=== PATIENT | female | born 1960 | race African-American/Black ===

== ENCOUNTER 2018-12-10 01:56 | Inpatient (IN) | payer MEDICARE, MEDICAID ==
[~2018-12-10] VITALS: Ht 167.6 cm; Wt 83.0 kg
[2018-12-10] VITALS (10 sets, daily range): BP systolic 96–138; BP diastolic 58–84
[~2018-12-10 01:56] MED LIST: ASPI-1471 PO; BISA-236 RC; BUPR-124 PO; CELE-1 PO; DIA5 PO; DOCU100C49 PO; DOCU100T19 PO; DOCU240C84 PO; ESOM40CA42 PO; ETAN50DI5 SQ; GABA-547 PO; GABA-549 PO; HYDR-2966 PO; HYDR-385 PO; LEFL20TA6 PO; LEVO-3 PO; LISI-351 PO; LOSA25TA57 PO; OXYC-865 PO; PARO-243 PO; PRE1 PO; PRE5 PO; RIV10 PO; TIZA2CAP3 PO; [UNRECOGNIZED DRUG - OTHER]
[2018-12-10] MEDS ORDERED: ACETAMINOPHEN 500 MG TAB PO ONE (08:30)
[2018-12-10] MEDS ORDERED: NS(*) 0.9% 100 ML BAG 100 ML ONE (10:38)
[2018-12-10] MEDS ORDERED: PROPOFOL EMUL(*) 10MG/ML 20 ML 60 ML ONE (10:41)
[2018-12-10] MEDS ORDERED: KETAMINE HCL 500 MG/10 ML VIAL ONE (10:44)
[2018-12-10] MEDS ORDERED: fentaNYL CITR 100 MCG/2 ML AMP ONE ×2 (10:44→16:23)
[2018-12-10] MEDS ORDERED: DEXAMETHASONE SOD PHOS 10MG/ML ONE (10:45)
[2018-12-10] MEDS ORDERED: ONDANSETRON 4 MG/2 ML VIAL ONE (10:45)
[2018-12-10] MEDS ORDERED: LIDOCAINE MPF 1% 5 ML VIAL ONE (10:45)
[2018-12-10] MEDS ORDERED: PROPOFOL EMUL(*) 10MG/ML 20 ML 20 ML ONE (10:45)
[2018-12-10] MEDS ORDERED: ROCURONIUM BROM 10 MG/ML 10 ML ONE (10:48)
[2018-12-10] MEDS ORDERED: LIDOCAINE 2% JELLY 5 ML TUBE ONE (10:48)
[2018-12-10] MEDS ORDERED: MIDAZOLAM 2 MG/2 ML VIAL IVP PRN (11:10)
[2018-12-10] MEDS ORDERED: LIDOCAINE/SOD BICARB 8.4% SYR ID ONE (11:10)
[2018-12-10] MEDS ORDERED: ceFAZolin(*) 2GM/D5W 50ML 50 ML IVPB ONE (11:10)
[2018-12-10] MEDS ORDERED: BACITRACIN 50000 UNIT/VIAL 50,000 UNIT in NS 0.9% IRRIG(*) 1000ML PLCT 1,000 ML IR PRN (11:10)
[2018-12-10] MEDS ORDERED: NORMOSOL R SOLN(*) 1000 ML BAG 1,000 ML IV PRN (11:10)
[2018-12-10] MEDS ORDERED: SUGAMMADEX SOD 500 MG/5 ML SDV ONE (11:13)
[2018-12-10] MEDS ORDERED: APREPITANT 40 MG CAP PO ONE (12:18)
[2018-12-10] MEDS ORDERED: ePHEDrine 25 MG/5 ML DISP.SYR IVP ONE (13:01)
[2018-12-10] MEDS ORDERED: REMIFENTANIL HCL 1 MG VIAL ONE ×2 (13:16→14:26)
[2018-12-10] MEDS ORDERED: MIDAZOLAM 2 MG/2 ML VIAL ONE (13:16)
[2018-12-10] MEDS ORDERED: THROMBIN TOP SOLN 5000INTLU VL ONE (13:54)
[2018-12-10] MEDS ORDERED: THROMBIN (BOVINE) 20,000 UNIT VIAL ONE (13:55)
[2018-12-10] MEDS ORDERED: HYDROmorphone HCL 2 MG/ML SDV ONE (16:54)
[2018-12-10] MEDS ORDERED: diphenhydrAMINE 25 MG CAP PO PRN (16:55)
[2018-12-10] MEDS ORDERED: ACETAMINOPHEN 500 MG TAB PO PRN (16:55)
[2018-12-10] MEDS ORDERED: BENZOCAINE/MENTHOL 1 EACH LOZG PO PRN (16:55)
[2018-12-10] MEDS ORDERED: MAGNESIUM HYDROXIDE* 30ML UDCP PO PRN (16:55)
[2018-12-10] MEDS ORDERED: ACETAMINOPHEN(*)1000 MG/100 ML 100 ML IVPB PRN (16:55)
[2018-12-10] MEDS ORDERED: oxyCODONE HCL 5 MG CAP PO PRN (16:55)
[2018-12-10] MEDS ORDERED: ONDANSETRON 4 MG/2 ML VIAL IVP PRN (16:55)
[2018-12-10] MEDS ORDERED: DIAZEPAM 5 MG TAB PO PRN (16:55)
[2018-12-10] MEDS ORDERED: FLUSH 10 ML SYR IVP PRN (16:55)
[2018-12-10] MEDS ORDERED: LR(*) 1000 ML BAG 1,000 ML IV PRN (16:55)
[2018-12-10] MEDS ORDERED: HYDROmorphone HCL 2 MG/ML SDV IVP PRN (16:55)
[2018-12-10] MEDS ORDERED: BISACODYL 10 MG SUPP PR PRN (16:55)
--- NOTE | 2018-12-10 17:50 | RADIOLOGY IMAGING REPORT ---
FACILITY: [facility] PATIENT NAME: Annel Mariee : 1960 MR: [id number] V: [id number] EXAM DATE: ORDERING PHYSICIAN: TIMOTEO HERRMANN TECHNOLOGIST: Location: [facility] [place] Patient: Annel Mariee : 1960 Visit/Account:[id number] Date of Sevice: 12/10/2018 C-ARM FLUORO 1 HR Indication: Back pain. Fusion. Procedure: Fluoroscopic guidance was provided for orthopedic surgery. Fluoroscopy time: AK: 15.4 mGy Number of images: 9 images of the lumbar spine were obtained. Findings: Fluoroscopic guidance was provided for anterior and posterior fusion at L4-5. IMPRESSION: Intraoperative lumbar spine images for fusion. Report Dictated By: Rober Quintanilla MD at 12/10/2018 5:44 PM Report E-Signed By: Rober Quintanilla MD at 12/10/2018 5:46 PM WSN:[id number]
--- NOTE | 2018-12-10 18:38 | OPERATIVE REPORT 1 ---
EVENT DATE: December 10, 2018 SURGEON: Julio Cesar Batista MD ANESTHESIOLOGIST: Devon Hazel MD ANESTHESIA: General endotracheal anesthesia. HEATING WORKER: Henry Aden PA-C PREOPERATIVE DIAGNOSIS L4-L5 foraminal stenosis with L4-L5 spondylolisthesis and right greater than left L4 radiculopathy. POSTOPERATIVE DIAGNOSIS L4-L5 foraminal stenosis with L4-L5 spondylolisthesis and right greater than left L4 radiculopathy. PROCEDURE PERFORMED Removal of deep implants L3-L4. Transforaminal interbody fusion L4-L5. Pedicle screw fixation L4-L5. INTRAVENOUS FLUIDS 2300 mL. ESTIMATED BLOOD LOSS 120 mL. IMPLANTS USED A 12 mm, zero-degree x 26 mm long titanium interbody device from [employer] placed at L4-L5. Pedicle screws 6.5 mm x 45 mm from [employer] times two. Pedicle screws 6.5 mm x 40 mm from [employer] times two. Connecting rods 50 mm from [employer] times two. Locking caps from [employer] times four. SPECIMENS None. DRAINS None. COMPLICATIONS None. DISPOSITION Post-anesthesia care unit. INDICATIONS FOR SURGERY Ms. Mariee is a 58-year-old female well known to me who underwent a laminectomy well over a year ago. She did quite well after her surgery, which was an L4-L5 laminectomy, but then a couple of months ago began experiencing pain radiating from the posterolateral hip, lateral thigh, lateral calf, and the dorsum of the right foot, as well as some radiating pain down the anterior thighs. She was sent for a new MRI, which showed us severe bilateral foraminal narrowing at that L4-L5 level in addition to significant progression of the anterolisthesis that was previously present. Her disk had almost completely collapsed as well. The anterolisthesis was nearly a grade 2. Her physical examination was significant for full strength in all myotomes, but light touch sensation was diminished in the dorsum of the right foot. Again, the imaging studies showed thickened ligament and lateral recess stenosis as well as severe foraminal stenosis bilaterally at L4-L5. A right-sided epidural steroid injection gave her good relief of her symptoms, but only temporarily, so ultimately she was offered a revision surgery in the form of removal of her previously placed hardware at L3 and L4 and new pedicle screw placement at L4 and L5 with transforaminal lumbar interbody fusion performed at that level as well. Prior to surgery, I explained in detail to the patient the possible risks of surgery. These risks include bleeding, infection, damage to surrounding structures, nerve root injury, spinal fluid leak, meningitis, persistent and/or worsening pain, need for further surgery, , blindness, sexual dysfunction, autonomic nervous system dysfunction, and other unforeseen medical and surgical complications. An understanding that in general spinal surgery is more predictive at improving extremity discomfort than axial spine pain was stressed. Further discussion regarding the increased risks due to the revision nature of the procedure was also had, those increased risks including increased risk of infection, bleeding, dural tear, etc. DESCRIPTION OF PROCEDURE On the day of surgery, the patient was met in the preoperative hold area, and all questions were answered. The operative site was identified and marked by myself. The patient was brought in good condition to the operating room, and after succumbing to anesthesia, was positioned in the prone position on a Kobe table. All bony protuberances and soft tissues were well padded in the standard fashion. Preoperative antibiotics were administered according to the appropriate timing schedule. Care was taken to maintain appropriate perfusion pressures during anesthesia. At the conclusion of the procedure, sponge and needle counts were correct times two. A final timeout was undertaken by members of the operating team to confirm correct patient, correct levels, and correct surgery. The patient was prepped and draped in the standard sterile orthopedic fashion, and a vertical incision was made inclusive of her previous surgical scar and going further inferior so that we could address that L4-L5 level completely. Sharp dissection was carried out down to the posterior elements, and I was then able to come down in the midline until I was able to locate the crosslink that had been placed at the previous fusion. From there, I dissected along the crosslink out laterally on both sides until we came to the connecting rods for the pedicle screws. The pedicle screws were then exposed bilaterally, and then I went further caudad on both sides to identify the L4-L5 facets and the transverse processes of L5. Appropriate instrumentation was used to remove the caps, the crosslink, the rods, and the screws at L3 and L4 bilaterally. I then went ahead and prepared the pedicles for the L5 pedicle screws by identifying the appropriate pedicle screw start point at approximately the junction of the pars interarticularis, the mid point of the transverse process, and the lateral border of the facet joint. I did this on both sides and used a high-speed crystal to decorticate the overlying bone. A Lenke style probe was advanced against resistance through the pedicle and into the vertebral body. A ball tip feeler was then used to ensure absence of bony breaching by palpating superiorly, inferiorly, medially, laterally, and distally to ensure solid bone all around. I selected 40 mm screws for the L5 level and placed both of those and then tested those with neurophysiologic monitoring, and they tested greater than 20 mA. We then replaced new screws in the existing pedicle holes at L4, and these also tested greater than 20 mA with neurophysiologic monitoring. A distraction device was inserted into the tulips of the screws on the right side of the patient. We distracted here, and it was noted at this point that the patient appeared to have a significant and complete pars defect on that side that gapped with distraction. I went ahead and used osteotomes to knock off the inferior articular process of L4 and then superior articular processes of L5, and this exposed the transforaminal interval and allowed me to identify the disk space. The annulotomy was performed in the disk space, and under fluoroscopic guidance, I went ahead and used progressively larger carlos alberto as well as curettes and pituitary rongeurs to perform a diskectomy of L4-L5 disk. Once this was complete, we selected a size 12 trial and placed that into the interbody space. AP and lateral radiographs were obtained that showed that that was the appropriate sized implant and that we had near complete reduction of the anterolisthesis with placement of the interbody device alone. I then packed the interbody space with demineralized bone matrix and milled local bone, and we then packed the interbody device with the same. The interbody device was tapped into place under fluoroscopic guidance, and once it was in perfect position, the tariff supervisor was removed. Distraction was taken off those pedicle screws, and we then selected 50 mm connecting rods for both sides. These were placed within the tulips, and locking caps were placed and tightened. On both sides, we used the torque wrench to tighten the L4 screws and then used the compression device to compress across the disk space and finally tighten the locking caps of L5. This was performed bilaterally. Final radiographs showed excellent positioning of the pedicle screws as well as the interbody device. The wound was then irrigated with copious antibiotic-impregnated fluid and closed in layers using interrupted sutures for the deep fascia, inverted interrupted sutures for the subcutaneous tissue, and then a running subcuticular skin stitch. Sponge and needle counts were correct times two. POSTOPERATIVE CARE PLAN Patient will remain in the hospital until she meets discharge criteria. She will be discharged home with instructions to follow up with me in two weeks' time. BLESSING
--- NOTE | 2018-12-10 18:52 | EKG ---
FACILITY: [facility] - [place] PATIENT NAME: MANJIT PAZ : [id number] MR: [id number] V: [id number] EXAM DATE: ORDERING PHYSICIAN: OBI MIRANDA TECHNOLOGIST: BRITTANI Test Reason : WEAK PULSE Blood Pressure : / mmHG Vent. Rate : 059 BPM Atrial Rate : 059 BPM P-R Int : 140 ms QRS Dur : 080 ms QT Int : 468 ms P-R-T Axes : 067 071 044 degrees QTc Int : 463 ms Sinus bradycardia Cannot rule out Anterior infarct , age undetermined Abnormal ECG Confirmed by OBI MIRANDA ([id number]) on 12/10/2018 7:25:59 PM Referred By: Confirmed By:OBI MIRANDA
[2018-12-10] MEDS ORDERED: NS(*) 0.9% 1000 ML BAG 0 ML ONE (18:56)
--- NOTE | 2018-12-10 19:33 | Hospitalist Consultation ---
History of Present Illness Requesting Physician Dr. Batista Reason for Consult Hypertension History of Present Illness This patient was admitted for lumbar surgery. Her surgery went well, but she suffered a near syncopal episode after arriving to the floor. History Problems: (1) Essential hypertension (2) Hypothyroid (3) Rheumatoid arthritis Home Meds Reported Medications Etanercept (ENBREL) 50 Mg/1 Ml Disp.syrin, 50 MG SQ QOWEEK 12/04/18 Gabapentin (GABAPENTIN) 300 Mg Capsule, 600 MG PO HS, CAPSULE 12/04/18 Leflunomide (LEFLUNOMIDE) 20 Mg Tablet, 20 MG PO DAILY 12/04/18 Hydrochlorothiazide (HYDROCHLOROTHIAZIDE) 25 Mg Tablet, 0.5 TAB PO QDAY, TAB 12/04/18 Hydrocodone Bit/Acetaminophen (HYDROCODON-ACETAMINOPHEN 5-325) 1 Each Tablet, 1- 2 EACH PO Q6H PRN for PAIN, #49 TAB 05/30/17 Docusate Calcium (SURFAK) 240 Mg Capsule, 240 MG PO QODAY, #9 CAPSULE 05/30/17 Levothyroxine Sodium (LEVOTHYROXINE SODIUM) 100 Mcg Tablet, 100 MCG PO QDAY, TAB 05/27/17 Gabapentin (GABAPENTIN) 300 Mg Capsule, 300 MG PO QAM, CAPSULE 05/27/17 Tizanidine Hcl (TIZANIDINE HCL) 2 Mg Capsule, 4 MG PO PRN, CAPSULE 05/27/17 Losartan Potassium (LOSARTAN POTASSIUM) 25 Mg Tablet, 100 MG PO QDAY 05/27/17 Aspirin (ASPIR 81) 81 Mg Tablet.dr, 81 MG PO QHS, TAB stopped 09/15/13 09/16/13 Prednisone (PREDNISONE) 1 Mg Tab, 4 MG PO BID, TAB 09/16/13 Esomeprazole Magnesium (NEXIUM) 40 Mg Capsule.dr, 1 CAP PO QDAY TAKE ONE CAPSULE BY MOUTH EVERY DAY 09/16/13 Celecoxib (CELEBREX) 200 Mg Capsule, 200 MG PO BID, CAPSULE stopped 09/13/13 09/16/13 Discontinued Reported Medications Diazepam (VALIUM) 5 Mg Tablet, 5 MG PO Q8H PRN for SPASMS, #25 TAB 05/30/17 Bupropion Hcl (BUPROPION XL) 150 Mg Tab.er.24h, 150 MG PO QDAY, #10 TAB 05/27/17 Docusate Sodium (STOOL SOFTENER) 100 Mg Capsule, 100 MG PO QHS PRN for BLOATING, CAPSULE 09/16/13 Prednisone 5 Mg Tab (PREDNISONE 5 MG TAB) 5 Mg Tablet, 5 MG PO QAM 09/16/13 Allergies: Coded Allergies: No Known Drug Allergies (Unverified , 09/16/13) Patient History: FH: diabetes mellitus FATHER, , Age:70 MOTHER, , Age:60 years and older Hx Smoking: Yes (> 0.5 PPD X 25 YRS ) Smoking Status: Current: Every Day Smoker Caffeine Intake: Coffee, Tea, Soda Caffeine/Cups Per Day: 1 CCD Hx Alcohol Use: Yes Hx Substance Use Disorder: No Social Drug Use: Never History of IV Drug Use: No Review of Systems All Systems Reviewed/Normal: Yes Exam Vital Signs Vital Signs Date Time Temp Pulse Resp B/P (MAP) Pulse Ox O2 Delivery O2 Flow Rate FiO2 12/10/18 19:18 97.4 59 16 103/61 (75) 96 Nasal Cannula 2.0 Neuro: No Gross deficits Cardiovascular: Regular Rate and Rhythm Respiratory: Clear to Auscultation GI: Abd Soft and Non-Tender Extremities: No Edema Integumentary: No Cyanosis Assessment and Plan Problems: (1) Near syncope Assessment & Plan: She did suffer a near syncopal episode postoperatively and her blood pressures are running borderline low. She is receiving an IV bolus and we have started her on stress dose hydrocortisone. An EKG showed only sinus bradycardia. (2) Rheumatoid arthritis Assessment & Plan: She is on chronic treatment with Enbrel, leflunomide, and prednisone. We have started her on hydrocortisone as above. The other medications are on hold. (3) Essential hypertension Assessment & Plan: She is on chronic treatment with losartan and hydrochlorothiazide, which are both on hold. (4) Hypothyroid Assessment & Plan: She is on chronic treatment with Synthroid. Copies to: TIMOTEO BATISTA MD ; Venous Thromboembolism Antithrombotics Is Pt On Any Antithrombotics?: No Exam Sepsis Risk: No Definite Risk OBI MIRANDA DO December 10, 2018 19:33
[2018-12-10] MEDS ORDERED: NS(*) 0.9% 500 ML BAG 500 ML IV ONE (19:45)
[2018-12-10] MEDS: APAP/HYDROCODONE 325/5 TAB PO PRN (20:42)
[2018-12-10] MEDS: DOCUSATE SODIUM 100 MG CAP PO SCH (20:42)
[2018-12-10] MEDS: ceFAZolin(*) 2GM/D5W 50ML 50 ML IVPB SCH (20:43)
[2018-12-10] MEDS: HYDROCORTISONE 100 MG/2 ML IVP SCH (20:43)
[2018-12-10] MEDS ORDERED: GABAPENTIN 300 MG CAP PO SCH (21:00)
[2018-12-11] VITALS: BP 119/78
[2018-12-11] MEDS: APAP/HYDROCODONE 325/5 TAB PO PRN ×3 (00:52→09:27)
[2018-12-11 04:05] VITALS: BP 127/84
[2018-12-11] MEDS: HYDROCORTISONE 100 MG/2 ML IVP SCH ×2 (04:08→12:23)
[2018-12-11] MEDS: ceFAZolin(*) 2GM/D5W 50ML 50 ML IVPB SCH ×2 (04:08→12:24)
[2018-12-11] MEDS ORDERED: LEVOTHYROXINE SOD 0.1 MG TAB PO SCH (06:00)
[2018-12-11 07:20] VITALS: BP 120/76
[2018-12-11] MEDS ORDERED: DOCU240C84 PO (07:55)
[2018-12-11] MEDS ORDERED: DIA5 PO (07:57)
[2018-12-11] MEDS ORDERED: LOR5/325 PO (07:58)
--- NOTE | 2018-12-11 08:59 | NUR ---
Physical Therapy Impression Pt eval complete. Pt aware of fusion precautions, PT reinforced. Bed mobility with log completed with SBA. SBA for transfers and ambulation x150' with RW. Pt instruction to asc/desc stair with walker as well as with railing, pt completed with SBA and good safety. Pt with good awareness of precautions when completing pericare. Pt is safe to d/c home and has met PT goals, she will have assist from family, rec use of RW. Physical Therapy Goals 1: Bed mobility with SBA and log roll 2: transfers with SBA and RW 3: Ambulation x150' with RW and SBA 4: Up/down 2 stairs with SBA Patient's Goals
[2018-12-11] MEDS ORDERED: GABAPENTIN 300 MG CAP PO SCH (09:00)
[2018-12-11] MEDS: DOCUSATE SODIUM 100 MG CAP PO SCH (09:28)
--- NOTE | 2018-12-11 12:14 | Hospitalist Progress Note ---
Subjective Progress Notes Subjective She was admitted s/p lumbar surgery. She had no further acute episodes overnight. She feels well this morning. Has no complaints. Patient Complains of: Cardiovascular: No: Chest Pain Respiratory: No: Shortness of Breath Physical Exam Vital Signs Date Time Temp Pulse Resp B/P (MAP) Pulse Ox O2 Delivery O2 Flow Rate FiO2 12/11/18 08:34 66 12/11/18 08:20 89 Room Air 12/11/18 07:20 97.9 120/76 (91) 12/11/18 04:05 16 12/11/18 00:00 2.0 Intake and Output 12/11/18 07:00 Intake Total 2836 ml Output Total 200 ml Balance 2636 ml Intake Oral 700 ml IV Total 2136 ml Output Urine Total 100 ml Estimated Blood Loss 100 ml # Voids 5 # Bowel Movements 3 General Appearance: Alert, Awake, No Acute Distress, Afebrile Neuro: No Gross deficits Cardiovascular: Regular Rate and Rhythm Respiratory: No Respiratory Distress, Clear to Auscultation GI: Soft and Non-Tender Psych: Alert & Oriented X3, Appropriate Mood & Affect Assessment and Plan Problems: (1) Near syncope Assessment & Plan: She did suffer a near syncopal episode postoperatively and her blood pressures were running borderline low. She received an IV bolus and stress dose hydrocortisone. An EKG showed only sinus bradycardia. Blood pressures normal this morning. (2) Rheumatoid arthritis Assessment & Plan: She is on chronic treatment with Enbrel, leflunomide, and prednisone. We have started her on hydrocortisone as above. The other medications are on hold. (3) Essential hypertension Assessment & Plan: She is on chronic treatment with losartan and hydrochlorothiazide, which are both on hold for three days prior to resuming. (4) Hypothyroid Assessment & Plan: She is on chronic treatment with Synthroid. Exam Sepsis Risk: No Definite Risk KATIE SANDRA UTILITY AIRCREWMAN December 11, 2018 12:14
[2018-12-11 12:18] VITALS: BMI 29.5
[2018-12-11 12:30] VITALS: BP 118/65
[2018-12-12 15:19] VITALS: Ht 167.6 cm; Wt 83.0 kg
== END 2018-12-11 14:05 | disposition home or self-care (01) | DRG 460 ==
LOC: OR 01:56 → MED 17:45
PROVIDERS: ADMIT Orthopaedic Surgery; ATTEND Orthopaedic Surgery
PROC: 0SG00AJ Fusion of Lumbar Vertebral Joint with Interbody Fusion Device, Posterior Approach, Anterior Column, Open Approach (ICD-10-PCS; principal; 2018-12-10 12:31)
PROC: 0ST20ZZ Resection of Lumbar Vertebral Disc, Open Approach (ICD-10-PCS; 2018-12-10 12:31)
DX: M48.061 Spinal stenosis, lumbar region without neurogenic claudication (principal); M43.16 Spondylolisthesis, lumbar region; M54.16 Radiculopathy, lumbar region; I10 Essential (primary) hypertension; K21.9 Gastro-esophageal reflux disease without esophagitis; E03.9 Hypothyroidism, unspecified; M06.9 Rheumatoid arthritis, unspecified; I95.81 Postprocedural hypotension; R55 Syncope and collapse; Z87.891 Personal history of nicotine dependence
CPT/HCPCS: 36416; 76000; 82948; 86850; 86900; 86901; 93005; 95940; 97161; C1713; J0690; J1100; J1170; J1720; J2001; J2250; J2405; J2704; J3010; J7040; J7050; J8501

== ENCOUNTER 2019-01-25 12:20 | Inpatient (IN) | payer MEDICARE, MEDICAID ==
[~2019-01-25] VITALS: Ht 167.6 cm; Wt 72.6 kg
[~2019-01-25 12:20] MED LIST changes: +LOR5/325 PO
[2019-01-25 14:15] VITALS: BP 141/85
[2019-01-25] MEDS ORDERED: ONDANSETRON 4 MG/2 ML VIAL IVP PRN (14:25)
[2019-01-25] MEDS ORDERED: LOSA25TA57 PO (16:10)
--- NOTE | 2019-01-25 16:50 | Hospitalist Consultation ---
History of Present Illness Requesting Physician Dr. Batista Reason for Consult Manage medical problems. Chief Complaint R foot pain, possible infected seroma post back surgery History of Present Illness The patient is a 58 year old female with PMH significant for RA who recently underwent lumbar laminectomy with Dr. Batista. The patient states her lumbar surgical area healed well and she was doing fine until she started noticing "electrical shock" type pain in her right foot. She saw Dr. Batista for follow up of her surgery. Evaluation in [place] revealed a fluid collection at the surgical site with some air bubbles in it concerning for infection. The patient was transferred to [facility] for further evaluation and treatment. Dr. Batista has asked the hospitalist team to manage the patient's medical problems and related medications. Upon arrival to [facility], the patient notes she has developed pain and swelling in her left calf as well. She has no previous personal history and no family history of blood clots. History Problems: (1) Rheumatoid arthritis Status: Chronic (2) Essential hypertension Status: Chronic (3) Hypothyroid Status: Chronic (4) PUD (peptic ulcer disease) Status: Chronic Home Meds Reported Medications Losartan Potassium (LOSARTAN POTASSIUM) 25 Mg Tablet, 25 MG PO QDAY 01/25/19 Etanercept (ENBREL) 50 Mg/1 Ml Disp.syrin, 50 MG SQ QOWEEK 12/04/18 Leflunomide (LEFLUNOMIDE) 20 Mg Tablet, 20 MG PO DAILY 12/04/18 Hydrochlorothiazide (HYDROCHLOROTHIAZIDE) 25 Mg Tablet, 0.5 TAB PO QDAY, TAB Hold for 3 days then resume. 12/04/18 Levothyroxine Sodium (LEVOTHYROXINE SODIUM) 100 Mcg Tablet, 100 MCG PO QDAY, TAB 05/27/17 Gabapentin (GABAPENTIN) 300 Mg Capsule, 900 MG PO TID, CAPSULE 05/27/17 Prednisone (PREDNISONE) 1 Mg Tab, 1 MG PO BID, TAB 09/16/13 Esomeprazole Magnesium (NEXIUM) 40 Mg Capsule.dr, 1 CAP PO QDAY TAKE ONE CAPSULE BY MOUTH EVERY DAY 09/16/13 Discontinued Reported Medications Hydrocodone Bit/Acetaminophen (HYDROCODON-ACETAMINOPHEN 5-325) 1 Each Tablet, 1- 2 EACH PO Q6H PRN for PAIN, #36 TAB 0 Refills 12/11/18 Diazepam (VALIUM) 5 Mg Tablet, 5 MG PO Q8H PRN for SPASMS, #16 TAB 0 Refills 12/11/18 Gabapentin (GABAPENTIN) 300 Mg Capsule, 600 MG PO HS, CAPSULE 12/04/18 Docusate Calcium (SURFAK) 240 Mg Capsule, 240 MG PO QODAY, #9 CAPSULE 05/30/17 Losartan Potassium (LOSARTAN POTASSIUM) 25 Mg Tablet, 100 MG PO QDAY Hold for 3 days, then resume. 05/27/17 Allergies: Coded Allergies: No Known Drug Allergies (Unverified , 09/16/13) Patient History: FH: diabetes mellitus FATHER, , Age:70 MOTHER, , Age:60 years and older Other Social/Family Hx The patient is single. 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 She has 2 children who are healthy. Hx Smoking: Yes (> 0.5 PPD X 25 YRS ) Smoking Status: Current: Every Day Smoker Caffeine Intake: Coffee, Tea, Soda Caffeine/Cups Per Day: 1 CCD Hx Alcohol Use: Yes Hx Substance Use Disorder: No Social Drug Use: Never History of IV Drug Use: No Review of Systems All Systems Reviewed/Normal: Yes, Except as Noted Constitutional: No Fever Neurological: Other (Electric shocks in her R foot. Tingling in her L thigh.) Musculoskeletal: Pain (Joint pain due to RA. L calf pain and swelling, new.) Exam General Appearance: Alert, Awake, No Acute Distress Eyes: PERRLA Cardiovascular: Regular Rate and Rhythm Respiratory: Clear to Auscultation GI: Abd Soft and Non-Tender Extremities: Warm, Other (L calf is swollen and painful to palpation. Pedro Luis sign is positive.) Integumentary: Skin Intact without Lesion / Mass Psych: Alert & Oriented X3, Appropriate Mood & Affect Assessment and Plan Problems: (1) Seroma infection, postoperative Status: Acute Assessment & Plan: Dr. Batista has admitted the patient and plans to take her to the OR for exploration of wound with fluid culture and wash out. (2) Chronic steroid use Status: Chronic Assessment & Plan: Will order a dose of SoluCortef to be given before the patient goes to OR. (3) Pain of left calf Status: Acute Assessment & Plan: Venous doppler ordered for further evaluation. (4) Rheumatoid arthritis Status: Chronic Assessment & Plan: She has been holding Enbrel. Will also hold leflunomide for now. Will give SoluCortef in oymi-operative period and then resume prednisone orally. (5) Essential hypertension Status: Chronic Assessment & Plan: She currently takes losartan 1/2 of a 100mg tablet daily. (6) Hypothyroid Status: Chronic Assessment & Plan: She currently takes levothyroxine 75mcg daily. (7) PUD (peptic ulcer disease) Status: Chronic Assessment & Plan: The patient takes Nexium at home. Will place on pantoprazole here. Time Spent on Plan of Care: < 30 min Venous Thromboembolism Antithrombotics Is Pt On Any Antithrombotics?: No Prophylaxis Tx Contraindicated Pharmacological Contraindicati: Surgical Contraindication KAY OTERO MD Jan 25, 2019 16:50
[2019-01-25] MEDS ORDERED: HYDROCORTISONE 100 MG/2 ML IVP ONE (17:00)
[2019-01-25] MEDS ORDERED: predniSONE 1 MG TAB PO ONE (17:30)
[2019-01-25] MEDS: APAP/HYDROCODONE 325/5 TAB PO PRN (17:43)
--- NOTE | 2019-01-25 18:02 | RADIOLOGY IMAGING REPORT ---
FACILITY: [facility] - [place] PATIENT NAME: Annel Mariee : 1960 MR: [id number] V: [id number] EXAM DATE: [id number] ORDERING PHYSICIAN: KAY OTERO TECHNOLOGIST: Location: [facility] Patient: Annel Mariee : 1960 Visit/Account:[id number] Date of Sevice: 01/25/2019 EXAMINATION: Left LOWER EXTREMITY VENOUS DOPPLER ULTRASOUND DATE: 01/25/2019 5:50 PM CLINICAL INFORMATION: Evaluate for DVT REASON FOR STUDY: Swollen, painful L calf TECHNIQUE: Grayscale, color Doppler, and spectral Doppler ultrasound was performed of the lower extre mity veins to evaluate for deep venous thrombosis. COMPARISON: None FINDINGS: The left common femoral, femoral, and popliteal veins are compressible with normal flow on color Dopp ler imaging. There is also normal Doppler flow of the profunda femoris and greater saphenous veins at the confluence with the common femoral vein. The left posterior tibial and peroneal veins demonstrate normal flow The contralateral right common femoral vein demonstrates normal flow on color Doppler and respiratory variations on spectral Doppler. IMPRESSION: No evidence of deep venous thrombosis in the left lower extremity veins. Report Dictated By: Garrison Nieves MD at 01/25/2019 5:50 PM Report E-Signed By: Garrison Nieves MD at 01/25/2019 5:56 PM WSN:[id number]
[2019-01-25] MEDS ORDERED: LEVO75TA73 PO (18:52)
[2019-01-25] MEDS ORDERED: LOSA100T75 PO (18:53)
[2019-01-25 18:59] VITALS: BP 106/66
[2019-01-25] MEDS: GABAPENTIN 300 MG CAP PO SCH (21:32)
[2019-01-25] MEDS ORDERED: HYDROmorphone HCL 2 MG/ML SDV ONE (22:47)
[2019-01-25] MEDS: HYDROmorphone HCL 2 MG/ML SDV IVP PRN (22:52)
[2019-01-26] VITALS (14 sets, daily range): BP systolic 124–154; BP diastolic 67–92; Ht 167.6 cm; Wt 72.6 kg
[2019-01-26] MEDS: LR(*) 1000 ML BAG 1,000 ML IV PRN ×2 (00:29→08:40)
[2019-01-26] MEDS: APAP/HYDROCODONE 325/5 TAB PO PRN ×3 (00:29→18:44)
[2019-01-26] MEDS: LEVOTHYROXINE SOD 0.075 MG TAB PO SCH (06:06)
[2019-01-26] MEDS: DOCUSATE CALCIUM 240 MG CAP PO SCH (08:40)
[2019-01-26] MEDS: GABAPENTIN 300 MG CAP PO SCH ×3 (08:40→21:20)
[2019-01-26] MEDS ORDERED: PANTOPRAZOLE SOD 40 MG IV VIAL IVP SCH (09:00)
[2019-01-26] MEDS ORDERED: HYDROCORTISONE 100 MG/2 ML IVP ONE ×2 (09:00→13:00)
--- NOTE | 2019-01-26 09:13 | Hospitalist Progress Note ---
Subjective Progress Notes Subjective She was admitted with infected seroma. She had no acute events overnight. She plans to go to the OR this afternoon. Patient Complains of: Cardiovascular: No: Chest Pain Respiratory: No: Shortness of Breath Physical Exam Vital Signs Date Time Temp Pulse Resp B/P (MAP) Pulse Ox O2 Delivery O2 Flow Rate FiO2 01/26/19 08:37 98.0 61 16 147/82 (103) 97 Nasal Cannula 1.0 Intake and Output 01/26/19 07:01 Intake Total 520 ml Balance 520 ml Intake Oral 520 ml # Voids 4 General Appearance: Alert, Awake, No Acute Distress, Afebrile Neuro: No Gross deficits Cardiovascular: Regular Rate and Rhythm Respiratory: No Respiratory Distress, Clear to Auscultation GI: Soft and Non-Tender Psych: Alert & Oriented X3, Appropriate Mood & Affect Assessment and Plan Problems: (1) Seroma infection, postoperative Status: Acute Assessment & Plan: Dr. Batista has admitted the patient and plans to take her to the OR for exploration of wound with fluid culture and wash out. (2) Chronic steroid use Status: Chronic Assessment & Plan: Will order a dose of SoluCortef to be given before the patient goes to OR. (3) Pain of left calf Status: Acute Assessment & Plan: Venous doppler ordered for further evaluation. Negative for DVT. (4) Rheumatoid arthritis Status: Chronic Assessment & Plan: She has been holding Enbrel. Will also hold leflunomide for now. Will give SoluCortef in yomi-operative period and then resume prednisone orally. (5) Essential hypertension Status: Chronic Assessment & Plan: She currently takes losartan 1/2 of a 100mg tablet daily. (6) Hypothyroid Status: Chronic Assessment & Plan: She currently takes levothyroxine 75mcg daily. (7) PUD (peptic ulcer disease) Status: Chronic Assessment & Plan: The patient takes Nexium at home. Will place on pantoprazole here. Exam Sepsis Risk: No Definite Risk KATIE SANDRA Jan 26, 2019 09:12
[2019-01-26] MEDS ORDERED: NORMOSOL R SOLN(*) 1000 ML BAG 1,000 ML IV ONE (11:19)
[2019-01-26] MEDS: HYDROmorphone HCL 2 MG/ML SDV IVP PRN (11:25)
[2019-01-26] MEDS ORDERED: fentaNYL CITR 250 MCG/5 ML AMP ONE (12:35)
[2019-01-26] MEDS ORDERED: DEXAMETHASONE SOD 4 MG/ML VIAL ONE (12:35)
[2019-01-26] MEDS ORDERED: PROPOFOL EMUL(*) 10MG/ML 20 ML 20 ML ONE (12:35)
[2019-01-26] MEDS ORDERED: LIDOCAINE MPF 1% 5 ML VIAL ONE (12:35)
[2019-01-26] MEDS ORDERED: ONDANSETRON 4 MG/2 ML VIAL ONE (12:35)
[2019-01-26] MEDS ORDERED: ROCURONIUM BR 10 MG/ML 5 ML SY 5 ML ONE (12:36)
--- NOTE | 2019-01-26 12:55 | EKG ---
FACILITY: [facility] - [place] PATIENT NAME: MANJIT PAZ : [id number] MR: [id number] V: [id number] EXAM DATE: ORDERING PHYSICIAN: TIMOTEO HERRMANN TECHNOLOGIST: RUTH Smith Reason : PRE-OP Blood Pressure : / mmHG Vent. Rate : 062 BPM Atrial Rate : 062 BPM P-R Int : 118 ms QRS Dur : 086 ms QT Int : 428 ms P-R-T Axes : 052 083 070 degrees QTc Int : 434 ms Normal sinus rhythm Normal ECG When compared with ECG of 10-DEC-2018 18:42, No significant change was found Confirmed by OBI MIRANDA ([id number]) on 01/27/2019 6:23:27 AM Referred By: MONTEZ Confirmed By:OBI MIRANDA
[2019-01-26 14:30] LABS: PLATELET COUNT, AUTOMATED 237 K/uL (150-450)
[2019-01-26] MEDS ORDERED: BACITRACIN 50000 UNIT/VIAL 100,000 UNIT in NS 0.9% 3000 ML IRRIGATION BAG 3,000 ML IR SCH (14:45)
[2019-01-26] MEDS ORDERED: SUGAMMADEX SOD 200 MG/2 ML SDV ONE (15:32)
[2019-01-26] MEDS ORDERED: KETAMINE HCL 200 MG/20 ML MDV ONE (15:32)
[2019-01-26] MEDS ORDERED: ceFAZolin 1 GM VIAL ONE (16:04)
[2019-01-26] MEDS ORDERED: ROPIVACAINE 0.2% 20 ML VIAL ONE (16:36)
[2019-01-26] MEDS ORDERED: fentaNYL CITR 100 MCG/2 ML AMP ONE (16:55)
[2019-01-26] MEDS: MORPHINE 2 MG/ML SYR IVP PRN ×2 (19:36→23:38)
--- NOTE | 2019-01-27 01:15 | HISTORY AND PHYSICAL ---
DATE OF ADMISSION: January 25, 2019 CHIEF COMPLAINT Back pain. HISTORY OF PRESENT ILLNESS Ms. Mariee is a 58-year-old female who has undergone multiple spine surgeries in the past, including a decompression by me and then a more recent fusion by me. The decompression was done through a midline incision, while the fusion was done through [place]ilt[place] incisions. She presented to the [facility] with worsening back pain yesterday, and they obtained a CT scan, which was concerning for a fluid collection in the midline with what appeared to be some possible gas within the fluid collection. Secondary to this, they contacted me and we transferred her down here for admission and irrigation and debridement of her wound. PAST MEDICAL HISTORY 1. Hypertension. 2. Thyroid disease. 3. Rheumatoid arthritis. PAST SURGICAL HISTORY 1. Bilateral hand surgery. 2. Right ring finger surgery. 3. Right knee surgery. 4. Left foot surgery. 5. Multiple spine surgeries. ALLERGIES No known drug allergies. CURRENT MEDICATIONS 1. Levothyroxine. 2. Hydrochlorothiazide. 3. Losartan. 4. Nexium. 5. Gabapentin. 6. Tizanidine. 7. Hydrocodone/acetaminophen. 8. Stool softeners. FAMILY HISTORY Noncontributory. REVIEW OF SYSTEMS Noncontributory. PHYSICAL EXAMINATION Physical examination revealed a well-appearing, well-developed female in no acute distress. She is alert and oriented x3. Hearing is intact, and cranial nerves II through XII are intact. Bowel sounds are present. Abdomen is soft and nontender. Lungs are clear to auscultation, and cardiac is regular rate and rhythm. Lower-extremity strength is 5/5 throughout, but she does have severe dysesthesias in a stocking-glove distribution in the right foot from about midcalf down. Light touch sensation was intact in all dermatomes, again with hyperesthesias that are painful, and dysesthetic in the right foot in a stocking-glove distribution. IMAGING STUDIES Imaging studies available for review included the CT scan from [place], which does show a midline fluid collection with no loculations, but there are a couple of cuts where there appears to possibly be some gas. LABORATORY STUDIES Laboratory studies did show an elevated CRP at just a little over 10, while her white count was negative and red blood counts were normal as well. IMPRESSION AND PLAN Ms. Mariee has a fluid collection from her much older surgery that does have some appearance of gas within the fluid collection, and so we are going to go ahead and take her to the operating room for wound cultures, irrigation and debridement. Depending on what we find there, we may have her on prolonged IV antibiotics versus doing a primary closure and sending her home just with some orals. BLESSING
--- NOTE | 2019-01-27 01:30 | OPERATIVE REPORT 1 ---
EVENT DATE: January 26, 2019 SURGEON: Julio Cesar Batista MD ANESTHESIOLOGIST: Tay Mehta MD ANESTHESIA: General endotracheal anesthesia. ELECTRICAL APPLIANCE REPAIRER: Felix Yap PA-C PREOPERATIVE DIAGNOSIS Postoperative fluid collection. POSTOPERATIVE DIAGNOSIS Postoperative fluid collection, with fluid collection identified as likely seroma without infection. PROCEDURE PERFORMED Exploration of postoperative seroma with irrigation and debridement of the same. ESTIMATED BLOOD LOSS Minimal. INTRAVENOUS FLUIDS 600 mL. IMPLANTS None. SPECIMENS We sent a significant amount of the fluid for culture, including aerobic, anaerobic, et cetera. DRAINS None. COMPLICATIONS None. DISPOSITION Postanesthesia care unit. INDICATIONS FOR SURGERY Ms. Mariee is a 58-year-old female who is a little over six weeks out from a transforaminal lumbar interbody fusion. She has been doing relatively well with resolution of her preoperative pain, but unfortunately has diagnosed some right lower extremity peripheral neuropathy in a stocking-glove distribution starting about 8 inches or so above the ankle. This is persistent and painful for her, but more problematic recently was an onset of right-sided low back pain. She presented to the [place] [facility] for that yesterday, and they obtained a CT scan of the abdomen and pelvis which showed a large fluid collection kind of midline, and a hint of gas within the fluid collection itself. She also had an elevated CRP, and secondary to all of this, she was transferred down here to [place] so that I could explore the wound, obtain cultures and perform irrigation and debridement. Prior to surgery, we discussed risks, benefits, and alternatives, and she voiced an understanding. DESCRIPTION OF PROCEDURE The wound was identified and marked by myself prior to surgery, and the patient was brought in good condition to the operating room, where she was positioned in the prone position on a Kobe table. All bony protuberances and soft tissues were padded in the standard fashion. Care was taken to maintain appropriate perfusion pressures during anesthesia. Antibiotics were administered after cultures had been obtained. At the conclusion of the procedure, sponge and needle counts were correct x2. Final time-out was undertaken by members of the operating team to confirm correct patient, correct levels, and correct surgery. A small incision was made kind of in the center of the region of the seroma, and immediately after going through the subcutaneous tissue, we encountered a large amount of clear, non- turbid straw-colored fluid. We sent a total of 20 mL of this to Pathology for culture, and then the remainder of it was evacuated. The wound was carefully explored and there was no evidence of infection, no purulent drainage or any other significant abnormality. The fascial sutures had dissolved since placement. We then irrigated the wound with 6L of antibiotic-impregnated fluid using the pulsed lavage and then carefully closed up the space and closed the fascia using a running Stratafix suture, and then closed the remainder of the wound using interrupted sutures for the superficial fascia and then a running subcuticular skin stitch. Sponge and needle counts were correct x2. POSTOPERATIVE CARE PLAN We will await cultures, but in the meantime will likely discharge Ms. Mariee home on some oral antibiotics. We intend to further work up her peripheral neuropathy with likely electrodiagnostic studies and a consultation with the neurologist. She will be discharged home likely tomorrow with followup with me in approximately two weeks. BLESSING
[2019-01-27] MEDS: APAP/HYDROCODONE 325/5 TAB PO PRN ×4 (02:30→21:27)
[2019-01-27 02:36] VITALS: BP 136/73
[2019-01-27] MEDS: LEVOTHYROXINE SOD 0.075 MG TAB PO SCH (06:10)
[2019-01-27 07:07] VITALS: BP 146/82
[2019-01-27] MEDS: PANTOPRAZOLE SOD 40 MG TABEC PO SCH (08:50)
[2019-01-27] MEDS: GABAPENTIN 300 MG CAP PO SCH ×3 (08:50→20:11)
[2019-01-27] MEDS: LOSARTAN POTASSIUM 50 MG TAB PO SCH (08:50)
[2019-01-27] MEDS: DOCUSATE CALCIUM 240 MG CAP PO SCH (08:50)
[2019-01-27] MEDS: HYDROCORTISONE 100 MG/2 ML IVP SCH ×2 (08:51→20:12)
[2019-01-27] MEDS: guaiFENesin 600 MG TABCR PO SCH ×2 (09:05→20:12)
--- NOTE | 2019-01-27 09:23 | Hospitalist Progress Note ---
Subjective Progress Notes Subjective She is now s/p I&D of her lumbar surgery. She feels she has increased sputum production this morning. Otherwise, denies any complaints. Patient Complains of: Cardiovascular: No: Chest Pain Respiratory: No: Shortness of Breath Physical Exam Vital Signs Date Time Temp Pulse Resp B/P (MAP) Pulse Ox O2 Delivery O2 Flow Rate FiO2 01/27/19 07:07 98.6 71 12 146/82 (103) 100 Nasal Cannula 2.0 Intake and Output 01/27/19 07:01 Intake Total 3068 ml Balance 3068 ml Intake Oral 650 ml IV Total 2418 ml # Voids 8 # Bowel Movements 1 General Appearance: Alert, Awake, No Acute Distress, Afebrile Neuro: No Gross deficits Cardiovascular: Regular Rate and Rhythm Respiratory: No Respiratory Distress, Clear to Auscultation, Other (cough noted with sputum production, lung clear) GI: Soft and Non-Tender Extremities: Warm, Perfused; No Edema Psych: Alert & Oriented X3, Appropriate Mood & Affect Result Diagram: 01/26/19 1420 01/26/19 1435 Assessment and Plan Problems: (1) Seroma infection, postoperative Status: Acute Assessment & Plan: Dr. Batista has admitted the patient and went to the OR 01/26 for exploration of wound with fluid culture and wash out. Cultures pending. (2) Chronic steroid use Status: Chronic Assessment & Plan: She is receiving stress dosed Solu-Cortef. Will resume usual Prednisone dose tomorrow. (3) Pain of left calf Status: Acute Assessment & Plan: Venous doppler ordered for further evaluation. Negative for DVT. (4) Rheumatoid arthritis Status: Chronic Assessment & Plan: She has been holding Enbrel. Will also hold leflunomide for now. Will give SoluCortef in yomi-operative period and then resume prednisone orally. (5) Essential hypertension Status: Chronic Assessment & Plan: She currently takes losartan 1/2 of a 100mg tablet daily. (6) Hypothyroid Status: Chronic Assessment & Plan: She currently takes levothyroxine 75mcg daily. (7) PUD (peptic ulcer disease) Status: Chronic Assessment & Plan: The patient takes Nexium at home. Will place on pantoprazole here. Exam Sepsis Risk: No Definite Risk KATIE SANDRA TOBACCO GROWER Jan 27, 2019 09:23
--- NOTE | 2019-01-27 09:44 | NUR ---
Physical Therapy Impression PT eval complete. Despite reporting significant pain in R foot, Pt able to tolerate mobility well. Carmen provided to lift L leg during transfer from sitting up in bed to sitting EOB. Pt transfered sit to supine with HOB flat, SBA and proper log roll technique. Pt transfered sit<>stand from EOB with SBA. Pt ambulated 60 ft. with CGA, use of RW and 1L of O2. Pt reports pain in R foot rising to 8-9/10 during ambulation but was still able to tolerate ambulation. Pt would benefit from further skilled PT care to educate on safe stair negotiation and ensure safe ambulation. Rec HH following dishcarge. Physical Therapy Goals 1. Independent bed mobility, with correct log roll technique 2. Aj transfers 3. Aj ambulation of 150 ft. with use of least restrictive device 4. Aj ability to ascend/descend 1 stair. Patient's Goals
[2019-01-27 10:42] VITALS: BP 140/79
--- NOTE | 2019-01-27 11:06 | Antimicrobial Stewardship ---
Antimicrobial Time Out Antimicrobial Stewardship MD Service: Other (ORTHO SURGERY) Indications: Other (INFECTED POST OP) Antimicrobial Used CEFAZOLIN PRE OP DOSE AND BACITRACIN IRRIGATION INTRA-OP Start Date: Jan 26, 2019 Culture Results: N/A Eligible for PO Conversion Eligable for PO Conversion: No (ABX STOPPED) Reviewed with Provider Reviewed w/ Provider on Rounds: No Comments Comments PATIENT RECEIVED PRE OP ANCEF DOSE AND INTRA OP BACITRACIN IRRIGATION OF INFECTED SITE MACHO PAK Jan 27, 2019 11:06
[2019-01-27] MEDS: MORPHINE 2 MG/ML SYR IVP PRN ×2 (12:23→20:12)
[2019-01-27] MEDS ORDERED: BACITRACIN 50000 UNIT/VIAL 100,000 UNIT in NS 0.9% 3000 ML IRRIGATION BAG 3,000 ML IR ONE (14:45)
[2019-01-27 16:04] VITALS: BP 155/81
--- NOTE | 2019-01-27 16:15 | NUR ---
This Physical Therapist or Porcelain Finish Sprayer was present for the entire physical therapy session directing the services, making the skilled judgement, and was not engaged in treating another patient or doing another task at the same time as the treatment session. Addendum: 01/27/19 at 1615 by OLLIE ROSA PT Amended: Links added.
[2019-01-27 18:48] VITALS: BP 133/76
[2019-01-28] MEDS: MORPHINE 2 MG/ML SYR IVP PRN (02:15)
[2019-01-28 03:25] VITALS: BP 139/63
[2019-01-28] MEDS: APAP/HYDROCODONE 325/5 TAB PO PRN ×2 (03:25→09:45)
[2019-01-28] MEDS: LEVOTHYROXINE SOD 0.075 MG TAB PO SCH (05:46)
[2019-01-28] MEDS ORDERED: LOR5/325 PO (07:19)
[2019-01-28] MEDS ORDERED: DIA5 PO (07:20)
[2019-01-28] MEDS ORDERED: DOCU240C84 PO ×2 (07:21→07:22)
[2019-01-28] MEDS ORDERED: predniSONE 1 MG TAB PO SCH (09:00)
[2019-01-28] MEDS: LOSARTAN POTASSIUM 50 MG TAB PO SCH (09:00)
[2019-01-28 09:41] VITALS: BP 134/87
[2019-01-28] MEDS: DOCUSATE CALCIUM 240 MG CAP PO SCH (09:44)
[2019-01-28] MEDS: PANTOPRAZOLE SOD 40 MG TABEC PO SCH (09:45)
[2019-01-28] MEDS: GABAPENTIN 300 MG CAP PO SCH (09:45)
[2019-01-28] MEDS: guaiFENesin 600 MG TABCR PO SCH (09:45)
--- NOTE | 2019-01-28 11:02 | Hospitalist Progress Note ---
Subjective Progress Notes Subjective She was admitted s/p I&D of lumbar. She has no complaints, she would like to go home today. Patient Complains of: Cardiovascular: No: Chest Pain Respiratory: No: Shortness of Breath Physical Exam Vital Signs Date Time Temp Pulse Resp B/P (MAP) Pulse Ox O2 Delivery O2 Flow Rate FiO2 01/28/19 10:26 Room Air 01/28/19 09:45 91 01/28/19 09:41 98.3 77 16 134/87 (103) Intake and Output 01/28/19 01:01 Intake Total 640 ml Balance 640 ml Intake Oral 640 ml # Voids 5 # Bowel Movements 1 General Appearance: Alert, Awake, No Acute Distress, Afebrile Neuro: No Gross deficits Cardiovascular: Regular Rate and Rhythm Respiratory: No Respiratory Distress, Clear to Auscultation GI: Soft and Non-Tender Psych: Alert & Oriented X3, Appropriate Mood & Affect Result Diagram: 01/26/19 1420 01/26/19 1435 Assessment and Plan Problems: (1) Seroma infection, postoperative Status: Acute Assessment & Plan: Dr. Batista has admitted the patient and went to the OR 01/26 for exploration of wound with fluid culture and wash out. Cultures pending show no growth. (2) Chronic steroid use Status: Chronic Assessment & Plan: She is receiving stress dosed Solu-Cortef. Will resume usual Prednisone dose today. (3) Pain of left calf Status: Acute Assessment & Plan: Venous doppler ordered for further evaluation. Negative for DVT. (4) Rheumatoid arthritis Status: Chronic Assessment & Plan: She has been holding Enbrel. Will also hold leflunomide for now. (5) Essential hypertension Status: Chronic Assessment & Plan: She currently takes losartan 1/2 of a 100mg tablet daily. (6) Hypothyroid Status: Chronic Assessment & Plan: She currently takes levothyroxine 75mcg daily. (7) PUD (peptic ulcer disease) Status: Chronic Assessment & Plan: The patient takes Nexium at home. Will place on pantoprazole here. Exam Sepsis Risk: No Definite Risk KATIE SANDRA CONSERVATION OR HERITAGE ARCHITECT Jan 28, 2019 11:01
--- NOTE | 2019-01-29 09:33 | NUR ---
This Physical Therapist or Compotype Operator was present for the entire physical therapy session directing the services, making the skilled judgement, and was not engaged in treating another patient or doing another task at the same time as the treatment session. Addendum: 01/29/19 at 0950 by JENNIFFER LEES PT Amended: Links added.
== END 2019-01-28 11:28 | disposition home health service (06) | DRG 909 ==
LOC: MED 14:13
PROVIDERS: ADMIT Orthopaedic Surgery; ATTEND Orthopaedic Surgery
PROC: 0JD70ZZ Extraction of Back Subcutaneous Tissue and Fascia, Open Approach (ICD-10-PCS; principal; 2019-01-25)
PROC: 0J970ZX Drainage of Back Subcutaneous Tissue and Fascia, Open Approach, Diagnostic (ICD-10-PCS; 2019-01-25)
DX: L76.34 Postprocedural seroma of skin and subcutaneous tissue following other procedure (principal); I10 Essential (primary) hypertension; K27.7 Chronic peptic ulcer, site unspecified, without hemorrhage or perforation; K21.9 Gastro-esophageal reflux disease without esophagitis; F17.210 Nicotine dependence, cigarettes, uncomplicated; Z79.52 Long term (current) use of systemic steroids; E03.9 Hypothyroidism, unspecified; M06.9 Rheumatoid arthritis, unspecified
CPT/HCPCS: 36415; 82040; 82247; 82310; 82374; 82435; 82565; 82947; 84075; 84132; 84155; 84295; 84450; 84460; 84520; 85025; 87071; 87073; 93005; 97161; C9113; J0690; J1100; J1170; J1720; J2001; J2270; J2405; J2704; J2795; J3010; J3490; J7120; J7512